=== PATIENT | male | born 1970 | race Caucasian/White ===

== ENCOUNTER 2022-01-29 14:17 | Emergency (ER) | payer BC ==
[~2022-01-29] VITALS: Ht 175.3 cm; Wt 95.2 kg
== END 2022-01-29 17:32 | disposition home or self-care (01) ==
LOC: ED 14:17
DX: S10.93XA Contusion of unspecified part of neck, initial encounter (principal); S20.229A Contusion of unspecified back wall of thorax, initial encounter; W22.8XXA Striking against or struck by other objects, initial encounter
CPT/HCPCS: 72040; 72070; 73110; 99283-25; A9270